=== PATIENT | female | born 1935 | race Hispanic/Latino ===

== ENCOUNTER 2018-09-08 07:08 | Day surgery (SDC) | payer MEDICARE ==
[2018-09-08] MEDS ORDERED: NITROSTAT SL ONE (08:30)
[2018-09-08] MEDS ORDERED: LOPRESSOR IV ONE (08:30)
[2018-09-08] MEDS ORDERED: ATROPINE 0.1% (CARDIAC) ONE (08:41)
[2018-09-08 09:40] VITALS: BP 156/69
--- NOTE | 2018-09-08 15:43 | Cat Scan Report ---
CT ANGIO HEART STRUCTURE/MORPHOLOGY/FUNCTION: INDICATION: Abnormal stress test. COMPARISON: None similar. FINDINGS: A limited chest CT scan was carried out for evaluation of heart structure, morphology and function. This dictation is for the non-cardiac portion of the chest which was included. No definite hilar or mediastinal mass. Mild right middle lobe and slight lingular scarring. Otherwise clear lungs. Few atherosclerotic vascular calcifications noted. Mild nonspecific distal esophageal wall prominence/thickening, not excluded for gastroesophageal reflux and/or hiatal hernia, amongst others. Mild intrahepatic biliary dilatation partially imaged, more so in the left lobe. No focal aggressive osseous lesions. IMPRESSION: Few incidental findings, as above. Thank you for the opportunity to participate in this patient's care.
--- NOTE | 2018-09-10 22:18 | Procedure Note ---
[address] ANGIOGRAPHY ORDERING PHYSICIAN: Fina Escalona MD INDICATION: Chest pain. EQUIVOCAL STRESS TEST FINDINGS: 1. The total Agatston calcium score is 2527. 2. The percentile by age, gender sex and race is 99% according AMADOR criteria. 3. 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 The left circumflex artery is heavily and severely calcified in the proximal segment with a calcification involving the proximal obtuse marginal as well as the proximal mid and distal atrioventricular groove vessel. 4. 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 There is nonobstructive calcified disease noted in the proximal segment of the anomalous left anterior descending artery. Otherwise, no significant obstructive disease. 5. The right coronary artery is a dominant vessel. The right coronary artery originates from the right cusp. It is a large caliber vessel. The right coronary artery is severely and heavily calcified in its proximal, mid and distal segment. The extent of calcifications is resulting in significant blooming artifact rendering the interpretation of any luminal stenosis practically impossible with a coronary CTA. There is, however, evidence of contrast flowing all the way distally into the PDA and PLVB. The mid right coronary artery also is not well visualized due to respiratory motion artifact. 6. The aortic valve is trileaflet. The ascending aorta is measuring 3.8 x 3.7 cm. 7. There is normal pulmonary venous anatomy. There is a small pericardial effusion. There is no evidence of a hiatal hernia. There is scattered atherosclerotic disease noted throughout the ascending as well as the descending thoracic aorta. IMPRESSION: 1. Abnormal coronary CTA revealing a total calcium score of 2527. 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 There is evidence of severe and heavy calcified disease involving the circumflex artery as well as the right coronary artery. Interpretation of intraluminal stenosis is practically impossible due to the limitation by the calcium blooming artifact. 2. Scattered atherosclerotic disease noted throughout the ascending and descending thoracic aorta. 3. Evidence of a small anterior pericardial effusion. 3. The left ventricle is normal in size and systolic function. The left ventricular ejection fraction is measured at 61%. Results were discussed with Dr. Fina Escalona. Coronary angiography is warranted to rule out suspected significant RCA and circumflex artery disease. [facility]# [id number] BR[place]/POOJA
== END 2018-09-08 09:47 | disposition home or self-care (01) ==
LOC: CATHLABREC 07:08 → EDSTATUS 07:45 → CATHLABREC 09:47
PROVIDERS: ATTEND Internal Medicine Cardiovascular Disease
DX: I25.10 Atherosclerotic heart disease of native coronary artery without angina pectoris (principal); K21.9 Gastro-esophageal reflux disease without esophagitis; K44.9 Diaphragmatic hernia without obstruction or gangrene; F17.210 Nicotine dependence, cigarettes, uncomplicated; E78.00 Pure hypercholesterolemia, unspecified; I10 Essential (primary) hypertension; R07.2 Precordial pain; R94.31 Abnormal electrocardiogram [ECG] [EKG]; Z79.82 Long term (current) use of aspirin; Z79.899 Other long term (current) drug therapy
CPT/HCPCS: 36415; 75574; 82565; 84520; Q9967; J0461